=== PATIENT | male | born 1950 | race Caucasian/White ===

== ENCOUNTER → 2024-05-16 13:42 | Outpatient (REF) | payer MEDICARE, BC, SELFPAY | LOC: HWRAD 13:42 | PROVIDERS: ATTENDING PHYSICIAN Internal Medicine | DX: R05.9 Cough, unspecified (principal) | CPT/HCPCS: 71046 ==

== ENCOUNTER → 2024-05-26 11:20 | Outpatient (REF) | payer MEDICARE, BC, SELFPAY | LOC: HWRAD 11:20 | PROVIDERS: ATTENDING PHYSICIAN Internal Medicine | DX: R10.31 Right lower quadrant pain (principal); M25.551 Pain in right hip | CPT/HCPCS: 73502 ==

== ENCOUNTER 2024-06-22 21:05 | Observation (INO) | payer MEDICARE, BC, SELFPAY ==
[2024-06-22] VITALS (7 sets, daily range): BP systolic 117–161; BP diastolic 58–83; BMI 33.0; BMI 32.3
[2024-06-22 16:08] LABS: % Basophils 0.4 % (0-2); % Eosinophils 4.2 % (0-6); % Immature Granulocytes 0.4 % (0-0.5); % Lymphocytes 26.7 % (20.5-51.1); % Monocytes 8.2 % (1.7-9.3); % Neutrophils 60.1 % (42.2-75.2); Absolute Eosinophils 0.4 10^3/uL (0-0.7); Absolute Lymphocytes 2.6 10^3/uL (1.2-3.4); Absolute Monocytes 0.8 10^3/uL (0.1-0.6); Absolute Neutrophils 5.9 10^3/uL (1.4-6.5); Hematocrit 38.5 % (39.0-52.0); Hemoglobin 13.9 g/dL (13.0-18.0); Mean Corp Hgb Conc. 36.1 g/dL (33.0-37.0); Mean Corpuscular Hgb 30.2 pg (27.0-31.0); Mean Corpuscular Volume 83.7 fL (80.0-94.0); Nucleated Red Blood Cells % 0 % (-); Platelet Count 273 10^3/uL (130-400); Red Cell Dist. Width 12.9 % (11.5-14.5); White Blood Cell Count 9.8 10^3/uL (4.8-10.8)
[2024-06-22 16:22] LABS: ALT (SGPT) 23 U/L (0-50); AST (SGOT) 23 U/L (17-59); Albumin 4.7 g/dl (3.5-5.0); Alkaline Phosphatase 99 U/L (38-126); Blood Urea Nitrogen 23 mg/dl (9-20); Calcium 9.8 mg/dl (8.4-10.2); Carbon Dioxide 20 mmol/L (22-30); Chloride 106 mmol/L (98-107); Glucose 93 mg/dl (70-99); Potassium 4.7 mmol/L (3.5-5.1); Sodium 142 mmol/L (135-145); Total Bilirubin 0.5 mg/dl (0.2-1.3); Total Protein 7.3 g/dl (6.3-8.2); eGFR > 60.00
[2024-06-22 16:28] LABS: Troponin I < 0.012 ng/ml
--- NOTE | 2024-06-22 17:53 | ED.CVA ---
History of Present Illness
General
Chief Complaint: CVA/TIA Symptoms
Source: patient and spouse
Time Seen by Provider: 06/22/24 17:09
Onset of Stroke Symptoms
Onset of symptoms known: No
Time pt last seen normal is known: Yes
Date last time pt seen normal: 06/22/24
History of Present Illness
History of Present Illness:
74-year-old male who presents after he had about 10 minutes of confusion and memory loss. He was driving his to the physical therapy which she has done for several weeks. He cannot recall where he was going by the name to the streets. He
also cannot recall why they were going to therapy. The patient states that he sense that he was confused and it resolved after about 10 minutes. His states she did look at him and did not notice a motor weakness or any asymmetry of the face.
His speech was clear. They did call the primary care doctor who sent him here to evaluate for TIA/CVA
Past History
Past History
ED Past Medical History: Hypercholesterolemia
Phy Exam
Physical Exam
Physical Exam:
CONSTITUTIONAL Patient alert and oriented to person, place and time. Well-appearing. Vital signs reviewed.
HEAD atraumatic, normocephalic.
EYES eyelids normal to inspection, Pupils equally round and reactive to light, Extraocular muscles intact, Conjunctiva normal, Sclera normal.
NECK normal range of motion, Trachea midline, no jugular venous distention.
RESPIRATORY CHEST No respiratory distress noted, Chest expansion equal, Bilateral breath sounds clear.
CARDIOVASCULAR regular rate and rhythm, Heart sounds normal.
ABDOMEN abdomen nontender, Bowel sounds normal. No distention.
BACK normal inspection, no obvious deformities
UPPER EXTREMITY range of motion normal, Motor strength normal, no cyanosis, no edema.
LOWER EXTREMITY range of motion normal, Motor strength normal, no cyanosis, no edema.
NEURO Speech normal, No focal motor deficits, Lorida coma scale 15, Memory normal, Cranial Nerves intact to screening exam. No pronator drift. Normal [id number]. Normal baby-lh-wbzp.
SKIN skin warm, dry, and normal in color.
Course
Orders/Labs/Results
Orders:
Orders
06/22/24 15:43
Electrocardiogram (*1) Urgent
Reason for Study: Other
Other Reason for Exam: CVA
CT Head W/o Iv Contrast Urgent
Comment:
Reason For Exam: forgetfullness
EKG- Treatment ONCE
06/22/24 15:55
Complete Blood Count/With Diff Urgent
Comprehensive Metabolic Panel Urgent
Troponin I Urgent
06/22/24 19:20
Aspirin 325 mg PO NOW STA
06/22/24 19:58
COVID-19 Antigen Urgent
Source: Nasal Swab
06/22/24 20:04
NEUROLOGY CONSULT Routine
Consulting Provider: Raciel Charlton
Was physician already notified: Yes
Reason for consult: Amnesia
Abnormal Lab Results
06/22/24
15:55
RBC 4.60 L 10^6/uL
(4.70-6.10)
Hct 38.5 L %
(39.0-52.0)
Absolute Monos (auto) 0.8 H 10^3/uL
(0.1-0.6)
Carbon Dioxide 20 L mmol/L
(22-30)
BUN 23 H mg/dl
(9-20)
06/22/24 15:55
06/22/24 15:55
Vital Signs
Initial and Last Documented VS:
Initial Vital Signs
Temp Pulse Resp BP Pulse Ox
98.3 F 90 18 161/83 95
06/22/24 15:37 06/22/24 15:37 06/22/24 15:37 06/22/24 15:37 06/22/24 15:37
Last Documented Vital Signs
Temp Pulse Resp BP Pulse Ox
98.3 F 75 21 117/63 96
06/22/24 15:37 06/22/24 19:15 06/22/24 19:15 06/22/24 19:00 06/22/24 17:56
MDM/Problems Addressed
MDM/Problems Addressed:
Transient global amnesia, rule out TIA
*Radiology
Radiology exam reviewed: radiology read reviewed
*Pulse Oximetry
Patient hypoxic: no
*EKG
Interpreted by ED Provider?: Yes
Interpretation: normal
Rate: normal
Rhythm: sinus
[place]: normal axis
Interval: normal interval
Ischemia: no ischemia
*Experimental Display Builder Interpretation
Rate: normal
Interpretation: normal
Rhythm: sinus
*Critical Care Note
Total Time (30-74mins, 75-104mins- exclusive of procedures): Not Applicable
Data Reviewed
Source: patient and spouse
Prescriptions/Medications Considered But Not Given:
Consider tnk but patient has a stroke score of 0 and symptoms have resolved
Patient Management
Discussion with other providers: Hospitalist and Deposition Operator (Neurology)
Escalation/DeEscalation of care consider admission/obs:
74-year-old male who presents with global amnesia. Consider outpatient management but patient concerned and I am concerned about the possibility of TIA as an etiology. He otherwise does appear well. Given his concern and findings, admit for
telemetry monitoring and further workup. Aspirin ordered
ED Attending Note
-
Portions of this chart may have been created with voice recognition software.� Occasional wrong word or��sound alike� substitutions may have occurred due to the inherent limitations of voice recognition software.
Discharge Plan
Departure
Patient Disposition: Admit
Date of Disposition: 06/22/24
Time of Disposition: 19:22
Admit to: Telemetry
Presentation/result/management discussed w/ accepting MD/DO: Hospitalist
Discharge Problem:
TGA (transient global amnesia)
Prescriptions:
No Action
pravastatin 40 mg Tablet
40 mg PO NOON
magnesium oxide 400 mg (241.3 mg magnesium) Tablet
400 mg PO NOON
calcium carbonate-vitamin D3 [Calcium 600 + D(3)] 600 mg-10 mcg (400 unit) Tablet
1 tab PO NOON
Visbiome 112.5 billion cell Capsule
1 cap PO NOON
omega 7-wsl-bso-fish oil [Fish Oil] 1,000 mg (120 mg-180 mg) Capsule
3 cap PO NOON
Prebiotic Fiber 2 gram Tablet,Chewable
6 g PO NOON
Referrals:
Andra Watson MD [Family Provider] -
Interventions
Interventions:
*Risk Screen - Suicide Last Done: 06/22/24 15:37
*General Assessment Last Done: 06/22/24 17:56
*Neglect/Abuse Screening Last Done: 06/22/24 15:37
ED- Fall Risk Assessment Last Done: 06/22/24 17:56
*ED COVID-19 Vaccine History Last Done: 06/22/24 17:56
ED- Pulmonary Assessment Last Done: 06/22/24 17:56
ED- Neurological Assessment Last Done: 06/22/24 17:56
ED- Cardiac Assessment Last Done: 06/22/24 17:56
ED Swallowing Screen Last Done: 06/22/24 17:56
Discharge Date and Time
Print Language: CZECH
[2024-06-22] MEDS: ASPIRIN 325 MG PO (19:27)
--- NOTE | 2024-06-22 19:39 | HPS.HSE ---
Family Physician
-
Family Physician: Andra Watson
Chief Complaint
-
Amnesia x 10 minutes
History of Present Illness
74-year-old male complaining of 10 minutes of confusion and memory loss. He reports he was driving his to physical therapy which she had done for several weeks he was unable to recall the name of the streets, which way to turn and was not sure
why he was going to therapy. He noticed he was confused but it did resolve after 10 minutes. His was in the car did not notice any motor weakness or neurological deficits. She reported to ER his speech was clear. His reports that he is
more stressed due to her having a left hip replacement and having to take on the work of caring for her cooking, cleaning which he normally has never done. Patient does report that he is constantly worrying about her she is doing more than she is
supposed to. The patient reports he had recent COVID 2 and half weeks ago took Paxlovid 150-100 mg x 5 days and held his pravastatin for 5 days. His symptoms at that time were sore throat and nasal congestion. He has past medical history of HLD,
COVID infection May 2024
Medical History
Past Medical History
Past Medical History: Reports Other
Additional Past Medical History:
HLD
Renal calculi
Obesity
COVID infection May 2024
Past Surgical History: Reports Other
Additional Past Surgical History:
Appendectomy-gangrenous lead to sepsis
Lithotripsy 2/2 renal calculi January 2024
C3-C4 fusion with bone graft from hip
Social History
Tobacco: Non-smoker
Alcohol: None
Drug: None
Personal:
Living: With Family ()
Family History
Family History: Other (Mother 61 leukemia, father age 77 Parkinson's, 1 brother living unsure any medical problems)
Allergies / Home Medications
Allergies reflects when Allergies were last updated in [employer].
Home Medications with original date entered in [employer]
Allergy/Medication List:
Allergies
Allergy/AdvReac Type Severity Reaction Status Date / Time
rosuvastatin [From Crestor] Allergy Unknown Verified 06/22/24 15:37
Home Medications
Lactobac no.2-Bifidobac no.1-S. thermo 112.5 billion cell capsule (Visbiome) 1 cap PO NOON 06/22/24
calcium carbonate 600 mg-vitamin D3 10 mcg (400 unit) tablet (Calcium 600 + D(3)) 1 tab PO NOON 06/22/24
inulin 2 gram chewable tablet (Prebiotic Fiber) 6 g PO NOON 06/22/24
magnesium oxide 400 mg (241.3 mg magnesium) tablet 400 mg PO NOON 06/22/24
omega 7-pbc-rfm-fish oil 1,000 mg (120 mg-180 mg) capsule (Fish Oil) 3 cap PO NOON 06/22/24
pravastatin 40 mg tablet 40 mg PO NOON 06/22/24
Review of Systems
-
History Source: Patient and Family ( at bedside)
A 12 point ROS was completed and negative except as noted: Yes
Constitutional: Reports Other (Amnesia x 10 minutes while driving); Denies Fever, Fatigue or Chills
EENT: Denies Sore Throat or Runny Nose
Respiratory: Denies Cough or Trouble Breathing
Cardiac: Denies Chest Pain, Diaphoresis, Palpitations or Syncope
Abdomen/GI: Denies Abdominal Pain, Nausea, Vomiting, Diarrhea, Constipated, Bloody Stools or Black Stools
: Denies Dysuria, Frequency, Flank Pain, Incontinence, Difficulty Voiding, Urgency or Dark Urine
Musculoskeletal: Denies Joint Pain or Edema
Skin: Denies Itching or Rash
Neurological: Denies Dizzy, Headache, Weakness or Numbness
Endocrine: Reports No Symptoms
Hematologic/Lymphatic: Reports No Symptoms
Psych: Reports Calm
Physical Exam
Vital Signs
Vital Signs
Temp Pulse Resp BP Pulse Ox
98.3 F 75 21 117/63 96
06/22/24 15:37 06/22/24 19:15 06/22/24 19:15 06/22/24 19:00 06/22/24 17:56
Physical Exam
General: Comfortable and Conversant; No Pain, Fever or Chills
HEENT: NormoCephalic, Anicteric, Moist mucous membranes, PERRLA, [place] Conjunctivae, No Ptosis and Neck Nontender
Respiratory: Clear; No Wheezes, Rales or Rhonchi
Cardiac: S1/S2 and Regular Rhythm; No Murmur, Rub, Gallop or Peripheral Edema
Breast: Deferred by me
GI: Soft, Non Distended, Normal Bowel Sounds and No Hepatosplenomegaly
Rectal: Deferred by Provider
Genito-urinary: Deferred by me
Musculoskeletal: No Clubbing, No Cyanosis and No Edema
Skin: Warm and Dry; No Rash or Jaundice
Neuro: AO x 3, No Motor Deficits, Nonfocal/grossly intact, Cranial Nerves Intact and No Sensory Deficits; No Slurred Speech, Facial Droop or Tremors
Psych: Calm
Laboratory Results
-
06/22/24 15:55
06/22/24 15:55
Laboratory Results
Total Bilirubin 0.5 mg/dl (0.2-1.3) 06/22/24 15:55
AST 23 U/L (17-59) 06/22/24 15:55
ALT 23 U/L (0-50) 06/22/24 15:55
Alkaline Phosphatase 99 U/L (38-126) 06/22/24 15:55
Troponin I < 0.012 ng/ml 06/22/24 15:55
Impression/Plan
-
Impression/plan:
Observation telemetry
#Acute amnesia concern for CVA/TIA versus seizure
#Recent COVID 2.5 weeks ago treated with 150�100 Paxlovid x 5 days*
Recent stressors last 7 weeks worrying about who had left hip replacement and having to assume household responsibilities
-Consult neurology
-Neurochecks every 4 hours
-Check lipid profile, HgbA1c
-Aspirin 325 mg given in ER, continue EC aspirin 81 mg daily
-Patient with reported unknown allergy to Crestor
-Continue pravastatin 40 mg at noon
-MRI/MRA brain
-Carotid ultrasound
-EEG
#HLD
Reported allergy to Crestor
-Continue pravastatin 40 mg at noon
-Check lipid profile
#COVID-19 infection May 2024 2 weeks ago
-Treated with Paxlovid 150/100 mg x 5 days patient held pravastatin for 5 days
-Will recheck COVID swab concern for rebound COVID
#Renal calculi Hx with history of lithotripsy January 2024
DVT prophylaxis
SCDs
Full code
[2024-06-22 20:29] LABS: COVID-19 Antigen Negative (Negative)
--- NOTE | 2024-06-22 20:56 | W.PN.UPDATE ---
Update Note
Progress Note Update
Patient seen and examined in conjunction with BRIELLE. Agree with findings on history, physical exam and concur with her assessment and plan.
This is a 74-year-old male with past medical history significant for hyperlipidemia overweight and hypertension who presents to the emergency department with an episode of forgetfulness that occurred and lasted 10 minutes. Patient reports that he
had COVID about 2 and half weeks ago completed treatment with Paxlovid. He is now completely symptomatic from that aspect. He reports that he was driving his spouse to her appointment today when all of a sudden he forgot where he was going while
he was going there and exactly where he was. He reported that this lasted about 10 minutes and he returned back to his usual state of health. In that time the patient denied having any slurred speech, blurry vision double vision numbness tingling
or weakness. He denies any facial asymmetry. He denies any further confusion. Patient reported that a similar episode occurred in 2020 which lasted for about 20 minutes. Denies having any headaches palpitations lightheadedness or dizziness.
Denies any nausea or vomiting. Denies any other intercurrent illness.
Is vital signs were stable in the emergency department. Exam shows no focal deficits with a NIH SS score of 0. CT scan of the head was negative.
The presentation is consistent with a transient amnestic episode which could be secondary to TIA stroke or seizure or possibly secondary to intracranial malignant process. Exam fortunately is benign
-Patient to be admitted for a TIA/stroke workup with MRI/MRA, carotid u/s. He is getting a EEG to evaluate for a brief seizure-like episode. Patient is given small dose of enteric-coated aspirin. Neurology aware and will follow the patient in AM.
--- NOTE | 2024-06-22 22:57 | PTCARENOTE ---
Patient admitted to room 317-1. Ambulated w/o assistance, steady gait. Admission completed. See nursing shift assessment for complete assessment. NIH 0, Neuro checks as documented. Plan of care discussed, questions answered, patient verbalized
understanding. Patient resting in bed, call olpez in reach.
[2024-06-23 03:15] VITALS: BP 143/67
[2024-06-23 07:19] VITALS: BP 124/71
[2024-06-23 07:32] LABS: Blood Urea Nitrogen 20 mg/dl (9-20); Calcium 9.3 mg/dl (8.4-10.2); Carbon Dioxide 21 mmol/L (22-30); Chloride 106 mmol/L (98-107); Estimated Creatinine Clearance 73 ml/min; Glucose 90 mg/dl (70-99); HDL Cholesterol 33 mg/dl; LDL Cholesterol, Calculated 85 mg/dl; Potassium 4.5 mmol/L (3.5-5.1); Sodium 141 mmol/L (135-145); Total Cholesterol 143 mg/dl (50-199); Triglyceride 128 mg/dl (10-149); Very Low Density Lipoprotein 25 mg/dl (0-30); eGFR > 60.00
[2024-06-23 07:36] LABS: % Basophils 0.4 % (0-2); % Eosinophils 6.2 % (0-6); % Immature Granulocytes 0.3 % (0-0.5); % Monocytes 8.4 % (1.7-9.3); % Neutrophils 46.7 % (42.2-75.2); Absolute Eosinophils 0.5 10^3/uL (0-0.7); Absolute Lymphocytes 2.8 10^3/uL (1.2-3.4); Absolute Monocytes 0.6 10^3/uL (0.1-0.6); Absolute Neutrophils 3.4 10^3/uL (1.4-6.5); Hematocrit 36.5 % (39.0-52.0); Hemoglobin 13.1 g/dL (13.0-18.0); Mean Corp Hgb Conc. 35.9 g/dL (33.0-37.0); Mean Corpuscular Hgb 30.8 pg (27.0-31.0); Mean Corpuscular Volume 85.7 fL (80.0-94.0); Mean Platelet Volume 10.1 fL (7.4-10.4); Nucleated Red Blood Cells % 0 % (-); Platelet Count 218 10^3/uL (130-400); Red Blood Cell Count 4.26 10^6/uL (4.70-6.10); Red Cell Dist. Width 12.9 % (11.5-14.5); White Blood Cell Count 7.4 10^3/uL (4.8-10.8)
[2024-06-23] MEDS: ASPIR LOW (ENTERIC COATED) 81 MG PO (09:08)
[2024-06-23 09:30] LABS: Glycohemoglobin (HgbA1c) 4.9 % (4.0-5.6)
--- NOTE | 2024-06-23 09:40 | W.PN.HOSP.TC ---
Today's Communication/Plan
-
see plan
Assessment / Plan
Assessment / Plan
74-year-old male with past medical history significant for hyperlipidemia overweight and hypertension who presents to the emergency department with an episode of forgetfulness that occurred and lasted 10 minutes. Patient reports that he had COVID
about 2 and half weeks ago completed treatment with Paxlovid.
#Acute amnesia concern for CVA/TIA versus seizure versus TGA
#Recent COVID 2.5 weeks ago treated with 150�100 Paxlovid x 5 days*
Recent stressors last 7 weeks worrying about who had left hip replacement and having to assume household responsibilities
-Consult neurology
-Neurochecks every 4 hours
-Check lipid profile, HgbA1c
-Aspirin 325 mg given in ER, continue EC aspirin 81 mg daily
-Patient with reported unknown allergy to Crestor
-Continue pravastatin 40 mg at noon
-MRI/MRA brain
-Carotid ultrasound
-EEG
#HLD
Reported allergy to Crestor
-Continue pravastatin 40 mg at noon
-Check lipid profile
#COVID-19 infection May 2024 2 weeks ago
-Treated with Paxlovid 150/100 mg x 5 days patient held pravastatin for 5 days
-Will recheck COVID swab concern for rebound COVID
#Renal calculi Hx with history of lithotripsy January 2024
DVT prophylaxis
SCDs
Full code
Anticipated Discharge: Within 24 hours
Subjective/Interval History
-
Date of Service: June 23, 2024
no new complaints overnight
no further episodes dizziness
Objective Data
-
Labs:
Laboratory Results
06/23/24
06:32
WBC 7.4
Hgb 13.1
Hct 36.5 L
Plt Count 218 D
Sodium 141
Potassium 4.5
Chloride 106
Carbon Dioxide 21 L
BUN 20
Creatinine 1.1
Glucose 90
Calcium 9.3
Vital Signs:
Vital Signs
Temp Pulse Resp BP Pulse Ox
98.4 F 72 17 124/71 97
06/23/24 07:19 06/23/24 07:19 06/23/24 07:19 06/23/24 07:19 06/23/24 07:19
I&O
06/22/24 06/23/24 06/24/24
06:59 06:59 06:59
Intake Total 240 / 240
Balance 240 / 240
Review of Systems
-
History Source: Patient
All other systems: Reviewed and negative
Physical Exam
-
General: No Apparent Distress
HEENT: PERRLA
Respiratory: Clear to Auscultation; Negative Wheezes
Cardiac: Regular Rhythm and S1/S2
GI: Soft and Nontender
Musculoskeletal: No Edema
Skin: Warm and Dry; Negative Rash
Neuro: AO x 3 and Nonfocal/Grossly Intact
Psych: Calm
Data Reviewed
-
Diagnostic Radiology: Report Reviewed by me
Labs: Labs Reviewed by me
[2024-06-23 10:15] VITALS: BP 122/72; PULSE 71; O2SAT 97
--- NOTE | 2024-06-23 10:31 | PTOTSP ---
PATIENT INDEPENDENT FOR ALL MOBILITY INCLUDING ELEVATIONS REQUIRING NO FURTHER ACUTE CARE SKILLED P.T. AT THIS TIME. WILL DISCHARGE FROM P.T. SERVICES.
[2024-06-23 11:14] VITALS: BP 115/64
[2024-06-23] MEDS: OSCAL 500 + D 500 MG PO (12:40)
[2024-06-23] MEDS: VISBIOME 1 CAP PO (12:40)
[2024-06-23] MEDS: PRAVACHOL 40 MG PO (12:40)
[2024-06-23] MEDS: MAG-TAB SR 84 MG PO (12:40)
--- NOTE | 2024-06-23 12:47 | W.DCSUMMARY ---
Discharge Summary
Discharge Data
Date of Admission: 06/22/24
Date of Discharge: 06/23/24
-
Pending Results: No
Hospital Course
Discharging Physician : Dr. Latanya Montiel
Disposition : Home
Primary care physician : Dr. Andra Watson
Principal Discharge diagnosis : Transient Ischemic Attack versus transient global amnesia
Hospital Course :
Mr. Adelfo Verdugo is a 74 yo man with hx significant for hyperlipidemia, hypertension, recent covid 2 weeks ago s/p Paxlovid course, who presents to the emergency department with an episode of forgetfulness that occurred and lasted 10 minutes. Triage
vitals stable, NIHSS score 0; head CT without acute event. He was admitted to medicine with Neurology consulting and underwent MRI the following day. MRI showed questionable tiny punctate nonhemorrhagic acute/subacute right pontine infarct, per
neurologist this was not a stroke.
He is discharged on new start aspirin 81mg daily and told to continue his Pravastatin (has allergy in past to Crestor).
Time spent on discharge was 31 minutes.
Important imaging findings :
MRI
IMPRESSION:
Questionable tiny punctate nonhemorrhagic acute/subacute right pontine infarct.
Vascular US
IMPRESSION:
Patent cervical arterial vasculature without significant atherosclerotic disease or hemodynamically significant stenosis.
Procedure findings :
Discharge Plan
-
Patient Disposition: Home (Routine Discharge)
Discharge Diagnosis/Procedures: transient global amnesia versus TIA
Diet: Regular
Activity: As tolerated
Driving Restrictions: As prior to admission
Bathing Restrictions: None
Referrals:
Andra Watson MD [Family Provider] - in less than 1 week
Additional Discharge Medication Instructions: New start aspirin 81 mg daily.
Continue statin.
Prescriptions:
New
aspirin 81 mg Tablet,Delayed Release (Dr/Ec)
81 mg PO DAILY Qty: 30 0RF
Continued
pravastatin 40 mg Tablet
40 mg PO NOON
magnesium oxide 400 mg (241.3 mg magnesium) Tablet
400 mg PO NOON
calcium carbonate-vitamin D3 [Calcium 600 + D(3)] 600 mg-10 mcg (400 unit) Tablet
1 tab PO NOON
Visbiome 112.5 billion cell Capsule
1 cap PO NOON
omega 6-pih-rua-fish oil [Fish Oil] 1,000 mg (120 mg-180 mg) Capsule
3 cap PO NOON
Prebiotic Fiber 2 gram Tablet,Chewable
6 g PO NOON
Discharge Orders:
Discharge Patient (As Directed); Ordered 06/23/24
Ordered By: Latanya Montiel
Discharge Date and Time
Print Language: MONTENEGRIN
[2024-06-23 14:22] VITALS: BP 117/70; PULSE 68; O2SAT 97
--- NOTE | 2024-06-23 14:23 | CON.NEURO4 ---
Consultation - Neurology 4
-
CONSULTING PHYSICIAN: Raciel Charlton MD (Neurology)
REFERRING PHYSICIAN: Hospitalist
DICTATED BY: Raciel Charlton MD
DATE/TIME OF REQUEST: June 22, 2024
DATE/TIME OF CONSULTATION: June 23 2024
Reason for Consultation: Altered mental status
History of Present Illness:
This is a 74 year old right handed (male who has presented to the hospital with (chief complaint) of altered mental status. He gives a history of hypercholesterolemia and had been in his usual state of health till yesterday morning. He was
driving to take his for physical therapy. At that time he became confused and disoriented and had to ask his for directions. He then was unable to recall the events of the day.
He noticed he was confused but it did resolve after 10 minutes. His was in the car did not notice any weakness or neurological deficits. She reported to ER physician his speech was clear. His reports that he is more stressed due to her
having a left hip replacement and having to take on household work of caring for her cooking, cleaning which he normally has never done. Patient does report that he is constantly worrying about her she is doing more than she is supposed to.
The patient reports he had recent COVID 2 and half weeks ago took Paxlovid 150-100 mg x 5 days and held his pravastatin for 5 days. His symptoms at that time were sore throat and nasal congestion.
No history of falls or head injuries no loss conscious seizures no difficulty speaking swallowing loss of balance and coordination or gait impairment
At the time of admission he is at baseline cognition. At the time of my exam this morning he has had no cognitive or motor deficits
Past Medical History: Hypercholesterolemia
Surgical History: None
Family History: None
Social History: lives at home with his health professional
Allergies: Crestor
Home Medications: Pravachol
Review of Symptoms:
Patient denies any fever, headache, chest pain, shortness of breath, GI or symptoms.
�Per the HPI.�All systems are reviewed negative except above.
�
Vital Signs:
The patient has a Temp 36.7 C Pulse 81 Resp 17 BP 115/64 Pulse Ox 96
Physical Exam:
The patient is afebrile, heart sounds S1 and S2 are (regular , and chest is clear to auscultation bilaterally.
Neurologic Examination:
The patient is awake, alert and oriented x 3. (He/She) is able to follow commands and answer questions appropriately. There is no aphasia or dysarthria. On cranial nerve assessment, pupils are 3 mm bilateral, round and reactive to light and
accommodation. Visual taylor are full. Extraocular movements are intact. Facial sensations are intact and bilaterally symmetrical, there is no facial asymmetry. Hearing is intact bilaterally to normal conversation volume. Tongue palate and uvula
are midline. Sternocleidomastoid strengths are full bilaterally. Motor strengths are 5/5 bilateral upper and lower extremities on medical research [place] scale. There is no drift or involuntary movement noted. Deep tendon reflexes are 2+ bilateral
upper and lower extremities and Babinski is absent bilaterally. Sensations of pain, touch, temperature and vibration are intact and bilaterally symmetrical. There was no extinction noted on double simultaneous stimulation. Coordination is intact by
finger to nose bilaterally.
Lab Results: See addendum
Neuro Imaging: CT head shows frontal atrophy minimal small vessel disease normal ventricles
Impression:
Mr. JOSE POSADA is a 74 year old M who has presented to the hospital with (symptoms/chief complaint). Brief confusion and disorientation that has resolved
Differentials for the patient's presentation include:
1. Transient global amnesia
2. Transient ischemic event
Recommendations:
1. Aspirin 325 loading followed by maintenance aspirin 81 mg daily
2. MRI of the head
3. EEG
4. B12
5. Pravachol
Discussed patient care with: Hospitalist
Allergies
-
Allergies
Allergy/AdvReac Type Severity Reaction Status Date / Time
rosuvastatin [From Crestor] Allergy Unknown Verified 06/22/24 15:37
Vital Signs and Labs
-
Vital Signs and Labs:
Vital Signs
Temp Pulse Resp BP Pulse Ox
36.7 C 81 17 115/64 96
06/23/24 11:14 06/23/24 11:14 06/23/24 11:14 06/23/24 11:14 06/23/24 11:14
Lab Results
06/23/24 06:32
06/23/24 06:32
Sodium 141 mmol/L (135-145) 06/23/24 06:32
Potassium 4.5 mmol/L (3.5-5.1) 06/23/24 06:32
BUN 20 mg/dl (9-20) 06/23/24 06:32
Glucose 90 mg/dl (70-99) 06/23/24 06:32
Calcium 9.3 mg/dl (8.4-10.2) 06/23/24 06:32
LDL Cholesterol, Calc 85 mg/dl 06/23/24 06:32
Medications
-
Active Medications
Generic Name Dose Route Start Last Admin
Trade Name Freq PRN Reason Stop Dose Admin
Acetaminophen 650 mg 06/22/24 21:38
Acetaminophen 650 Mg Rectal Suppository RECTAL 07/20/24 21:37
Q4HPRN PRN
MADRID, mild pain, or temp >100.4F
Acetaminophen 650 mg 06/22/24 21:38
Acetaminophen 325 Mg Tablet PO 07/20/24 21:37
Q4HPRN PRN
MADRID, mild pain, or temp >100.4F
Aspirin 81 mg 06/23/24 08:00 06/23/24 09:08
Aspirin 81 Mg (Enteric Coated) Tablet PO 07/21/24 07:59 81 mg
DAILY RAYMON Administration
Calcium/Vitamin D 500 mg 06/23/24 12:00 06/23/24 12:40
Calcium Carbonate 500 Mg/Vitamin D 5 Mcg (200 Units) Tablet PO 07/21/24 11:59 500 mg
NOON RAYMON Administration
Lactobacillus/Bifidobacterium 1 cap 06/23/24 12:00 06/23/24 12:40
Lactobac/Bifidobac (Visbiome) PO 07/21/24 11:59 1 cap
NOON RAYMON Administration
Magnesium 84 mg 06/23/24 12:00 06/23/24 12:40
Magnesium Lactate 84 Mg Tablet PO 07/21/24 11:59 84 mg
NOON RAYMON Administration
Pravastatin Sodium 40 mg 06/23/24 12:00 06/23/24 12:40
Pravastatin 40 Mg Tablet PO 07/21/24 11:59 40 mg
NOON RAYMON Administration
Sodium Chloride 0 flush 06/22/24 22:00
Sodium Chloride 0.9% (Flush) Syringe IV 07/20/24 21:59
PER PROTOCOL RAYMON
Home Medications
�Medication �Instructions �Recorded
Lactobac no.2-Bifidobac no.1-S. 1 cap PO NOON probiotic 06/22/24
thermo 112.5 billion cell capsule
(Visbiome)
calcium carbonate 600 mg-vitamin 1 tab PO NOON Supplement 06/22/24
D3 10 mcg (400 unit) tablet
(Calcium 600 + D(3))
inulin 2 gram chewable tablet 6 g PO NOON Supplement 06/22/24
(Prebiotic Fiber)
magnesium oxide 400 mg (241.3 mg 400 mg PO NOON Electrolyte 06/22/24
magnesium) tablet Repletion
omega 6-wbh-ulw-fish oil 1,000 mg 3 cap PO NOON Supplement 06/22/24
(120 mg-180 mg) capsule (Fish Oil)
pravastatin 40 mg tablet 40 mg PO NOON High Cholesterol 06/22/24
aspirin 81 mg tablet,delayed 81 mg PO DAILY #30 tabs 06/23/24
release
--- NOTE | 2024-06-23 14:31 | PTOTSP ---
pt currently requires no assistance to complete simple ADLs, functional transfers, ambulation. pt demonstrates no overt deficits requiring OT intervention at this time. will sign off.
--- NOTE | 2024-06-23 15:13 | CM ---
Reviewed chart, patient out for testing. Placed a call to patient's to obtain information for assessment. Patient's stated that patient lives with her in a one floor condo with elevator access. He is independent with all ADLs, self care,
bathing, dressing, toileting and ambulates without the use of an assistive device. He is able to, and has been due to his 's hip replacement, cook, clean, do internet marketer and laundry. He drives and can get to all of his appointments and do
all of his own shopping.
Patient had no DME per his .
He has never had VN services.
Patient has a prescription plan and uses, [facility] pharmacy in [place] for all of his medications.
Patient's PCP is, Andra Watson.
Patient's stated that patient should be at his baseline level of functioning and should be able to return home when cleared medically for discharge.
OBS letter reviewed with (she is agreeable to obs status) and signed on behalf of patient.
Plan: Case management will continue to follow and assist with discharge planning. Home when stable.
[2024-06-23 15:28] VITALS: BP 122/70
--- NOTE | 2024-06-23 17:30 | W.DS.TRANS ---
DC Summary - Manager Orange
-
Discharge Instructions:
Discharge Diagnosis/Procedures transient global amnesia versus TIA
Diet Regular
Activity As tolerated
Driving Restrictions As prior to admission
Bathing Restrictions None
Instructions:
Stand-Alone Forms:
Changes to Home Medications: Yes
Discharge Medications:
DC Medications w/original date entered in [facility]
Lactobac no.2-Bifidobac no.1-S. thermo 112.5 billion cell capsule (Visbiome) 1 cap PO NOON probiotic 06/22/24
calcium carbonate 600 mg-vitamin D3 10 mcg (400 unit) tablet (Calcium 600 + D(3)) 1 tab PO NOON Supplement 06/22/24
inulin 2 gram chewable tablet (Prebiotic Fiber) 6 g PO NOON Supplement 06/22/24
magnesium oxide 400 mg (241.3 mg magnesium) tablet 400 mg PO NOON Electrolyte Repletion 06/22/24
omega 2-wws-lqm-fish oil 1,000 mg (120 mg-180 mg) capsule (Fish Oil) 3 cap PO NOON Supplement 06/22/24
pravastatin 40 mg tablet 40 mg PO NOON High Cholesterol 06/22/24
aspirin 81 mg tablet,delayed release 81 mg PO DAILY #30 tabs 06/23/24
Home Medication Changes
addition of aspirin 81mg daily
Pending Results: No
--- NOTE | 2024-06-23 17:34 | EEG.RPT ---
Electroencephalogram Report
Recording
Date of EE06/23/24
Type of EEG: Routine
Length of EEG recordin mins
Done with Video Recording: Yes
Patient Status: Inpatient
Recording Conditions: Awake and Drowsy
Hyperventilation Performed: No
Photic Stimulation Performed: Yes
Report
METHODS
A 21 channel digitized electroencephalogram was performed at [facility]. The 10/20 international system of electrode placement was used. In addition to EEG, the patient was monitored for EKG. The duration of the recording was 29 minutes.
BACKGROUND
During the awake state, with the eyes closed, the background consisted of a normal amplitude, 10 Hertz posterior reactive rhythm that attenuated appropriately with eye opening. Beta activity was distributed diffusely with an anterior predominance.
There was a normal anterior-posterior voltage gradient. With eye opening the background activity changed to a low voltage mixture of alpha, beta, and occasional theta range frequencies. There were no significant asymmetries of background activity
noted.
PHOTIC STIMULATION
Photic stimulation using a step-dunn increase in photic frequency varying from 1-31 Hertz resulted in no driving responses but no appearance of abnormal activity.
ABNORMAL EEG ACTIVITY
This EEG is abnormal due to the presence of F3 and T3 sharp waves embedded in bursts of rhythmic slowing, 3-4Hz, in bursts lasting ~2 seconds each in duration.
CLINICAL EVENTS
None
INTERPRETATION AND CLINICAL CORRELATION
This EEG is abnormal due to the presence of left frontal and temporal sharp waves embedded in bursts of rhythmic slowing, 3-4Hz, in bursts lasting ~2 seconds each in duration. The background was otherwise normal. This study is consistent with left
frontal and temporal cortical irritability increasing risk of seizure.
[2024-06-23 18:50] LABS: Hepatitis C Antibody Negative (Negative)
== END 2024-06-23 17:55 | disposition home or self-care (01) ==
LOC: 3 WEST ACU 21:05
PROVIDERS: Clinical Nurse Specialist Family Health; Emergency Medicine; ADMITTING PHYSICIAN Internal Medicine; ATTENDING PHYSICIAN Student in an Organized Health Care Education/Training Program; CONSULT PHYSICIAN Psychiatry & Neurology Neurology; EMERGENCY PHYSICIAN Emergency Medicine; FAMILY PHYSICIAN Internal Medicine
DX: G45.9 Transient cerebral ischemic attack, unspecified (principal); G45.4 Transient global amnesia; R41.0 Disorientation, unspecified; E78.00 Pure hypercholesterolemia, unspecified; J32.3 Chronic sphenoidal sinusitis; I10 Essential (primary) hypertension; I73.89 Other specified peripheral vascular diseases; G31.89 Other specified degenerative diseases of nervous system; E66.9 Obesity, unspecified; Z68.32 Body mass index [BMI] 32.0-32.9, adult; Z87.442 Personal history of urinary calculi; Z86.16 Personal history of COVID-19; Z90.49 Acquired absence of other specified parts of digestive tract; Z98.1 Arthrodesis status; Z88.8 Allergy status to other drugs, medicaments and biological substances; Z79.82 Long term (current) use of aspirin; Z63.6 Dependent relative needing care at home; Z11.52 Encounter for screening for COVID-19
CPT/HCPCS: 70450; 70551; 80048; 80053; 80061; 83036; 84484; 85025; 86803; 87811; 93005; 93880; 95816; 97162; 97165; 99285; G0378

== ENCOUNTER → 2024-07-14 10:37 | Outpatient (REF) | payer MEDICARE, BC, SELFPAY ==
[2024-07-14 12:50] LABS: Iron 113 ug/dl (49-181)
[2024-07-14 13:00] LABS: Percent Saturation 30 % (20-50); Total Iron Binding Capacity 365 ug/dl (261-462)
[2024-07-14 13:26] LABS: Ferritin 63.4 ng/ml (17.9-464.0)
== END ==
LOC: HWRAD 10:37
PROVIDERS: FAMILY PHYSICIAN Internal Medicine; OTHER PHYSICIAN Internal Medicine
DX: N23 Unspecified renal colic (principal); E61.1 Iron deficiency; E78.5 Hyperlipidemia, unspecified; R73.01 Impaired fasting glucose; R79.89 Other specified abnormal findings of blood chemistry
CPT/HCPCS: 36415; 76775; 82728; 83540; 83550; 84443

== ENCOUNTER → 2024-07-22 11:01 | Outpatient (REF) | payer MEDICARE, BC, SELFPAY | LOC: EEG 11:01 | PROVIDERS: ATTENDING PHYSICIAN Psychiatry & Neurology Neurology; FAMILY PHYSICIAN Internal Medicine | DX: R94.01 Abnormal electroencephalogram [EEG] (principal) | CPT/HCPCS: 95813 ==

== ENCOUNTER → 2024-07-25 06:28 | Day surgery (SDC) | payer MEDICARE, BC, SELFPAY | LOC: GI 06:28 | PROVIDERS: ATTENDING PHYSICIAN Internal Medicine Gastroenterology; FAMILY PHYSICIAN Internal Medicine | DX: Z12.11 Encounter for screening for malignant neoplasm of colon (principal); D12.3 Benign neoplasm of transverse colon; K63.5 Polyp of colon; K64.8 Other hemorrhoids; Z86.0101 Personal history of adenomatous and serrated colon polyps | CPT/HCPCS: 45385; 45380; 88305 ==

== ENCOUNTER → 2025-05-23 08:24 | Outpatient (REF) | payer MEDICARE, BC, SELFPAY ==
[2025-05-23 10:23] LABS: Glycohemoglobin (HgbA1c) 5.0 % (4.0-5.6)
[2025-05-23 10:55] LABS: ALT (SGPT) 29 U/L (0-50); AST (SGOT) 22 U/L (17-59); Albumin 4.7 g/dl (3.5-5.0); Alkaline Phosphatase 90 U/L (38-126); Blood Urea Nitrogen 15 mg/dl (9-20); Calcium 9.0 mg/dl (8.4-10.2); Carbon Dioxide 20 mmol/L (22-30); Chloride 109 mmol/L (98-107); Glucose 108 mg/dl (70-99); HDL Cholesterol 32 mg/dl; LDL Cholesterol, Calculated 146 mg/dl; Potassium 4.9 mmol/L (3.5-5.1); Sodium 138 mmol/L (135-145); Total Protein 7.2 g/dl (6.3-8.2); Very Low Density Lipoprotein 54 mg/dl (0-30); eGFR > 60.00
[2025-05-23 12:08] LABS: Urine Character Clear (Clear)
[2025-05-23 12:40] LABS: Hematocrit 40.0 % (39.0-52.0); Hemoglobin 14.1 g/dL (13.0-18.0); Mean Corp Hgb Conc. 35.3 g/dL (33.0-37.0); Mean Corpuscular Volume 86.6 fL (80.0-94.0); Nucleated Red Blood Cells % 0 % (-); Platelet Count 235 10^3/uL (130-400); Red Cell Dist. Width 13.2 % (11.5-14.5)
== END ==
LOC: RAD 08:24
PROVIDERS: ATTENDING PHYSICIAN Internal Medicine
DX: E78.5 Hyperlipidemia, unspecified (principal); R73.01 Impaired fasting glucose; N20.0 Calculus of kidney; R10.32 Left lower quadrant pain
CPT/HCPCS: 36415; 74178; 80053; 80061; 81003; 83036; 85025; Q9967

== ENCOUNTER → 2025-09-27 09:38 | Outpatient (REF) | payer MEDICARE, BC, SELFPAY ==
[2025-09-27 11:39] LABS: ALT (SGPT) 36 U/L (0-50); AST (SGOT) 27 U/L (17-59); HDL Cholesterol 41 mg/dl; LDL Cholesterol, Calculated 110 mg/dl; Very Low Density Lipoprotein 29 mg/dl (0-30)
== END ==
LOC: REG 09:38
PROVIDERS: ATTENDING PHYSICIAN Internal Medicine
DX: E78.5 Hyperlipidemia, unspecified (principal)
CPT/HCPCS: 36415; 80061; 84450; 84460